=== PATIENT | male | born 1970 | race Caucasian/White ===

== ENCOUNTER 2020-12-30 07:59 | Day surgery (SDC) | payer OTHER ==
[2020-12-30] MEDS ORDERED: Xylocaine 1% Vial 30 ML PF IJ ONE (08:00)
[2020-12-30] MEDS ORDERED: BUPIVACAINE 0.5% VIAL IJ ONE (08:00)
[2020-12-30] MEDS ORDERED: Depo-Medrol 40 MG/ML IM ONE (08:00)
--- NOTE | 2020-12-30 16:31 | XRAY ---
14 seconds of fluoroscopy was used in surgery for right SI joint injection.
--- NOTE | 2020-12-31 09:55 | XRAY ---
Indication: Right SI joint injection. Intraoperative fluoroscopy provided for 14 seconds. 2 digital spot images submitted for interpretation demonstrates posterior needle tip projecting over the inferior right SI joint. Correlate with intraoperative findings/report.
== END 2020-12-30 10:00 | disposition home or self-care (01) ==
LOC: SDC-PAIN 07:59
PROVIDERS: ATTEND Psychiatry & Neurology Pain Medicine
DX: M46.1 Sacroiliitis, not elsewhere classified (principal); E11.9 Type 2 diabetes mellitus without complications; Z79.899 Other long term (current) drug therapy
CPT/HCPCS: 27096; 72020; 77002; 82947; J1030; J2001; G0260

== ENCOUNTER 2021-06-30 11:23 | Day surgery (SDC) | payer OTHER ==
[2021-06-30] MEDS ORDERED: Xylocaine 1% Vial 30 ML PF IJ ONE (11:24)
[2021-06-30] MEDS ORDERED: BUPIVACAINE 0.5% VIAL IJ ONE (11:24)
[2021-06-30] MEDS ORDERED: Depo-Medrol 40 MG/ML IM ONE (11:24)
--- NOTE | 2021-06-30 14:03 | XRAY ---
Indication: Right SI joint injection Intraoperative fluoroscopy provided for 17 seconds. 2 digital spot images submitted for interpretation demonstrates posterior needle tip projecting over the inferior right SI joint. Correlate with intraoperative findings/report.
--- NOTE | 2021-06-30 14:41 | XRAY ---
17 seconds fluoroscopy time in surgery for injection of the right SI joint.
== END 2021-06-30 13:50 | disposition home or self-care (01) ==
LOC: SDC-PAIN 11:23
PROVIDERS: ATTEND Psychiatry & Neurology Pain Medicine
DX: M46.1 Sacroiliitis, not elsewhere classified (principal); I10 Essential (primary) hypertension; E11.9 Type 2 diabetes mellitus without complications; Z79.899 Other long term (current) drug therapy
CPT/HCPCS: 27096; 72020; 77002; 82947; J1030; J2001; G0260

== ENCOUNTER 2021-07-22 14:25 | Day surgery (SDC) | payer OTHER ==
[2021-07-22] MEDS ORDERED: Sodium Chloride 0.9(Preservative Free) 10 ML IJ ONE (14:26)
[2021-07-22] MEDS ORDERED: Depo-Medrol 40 MG/ML IM ONE (14:26)
[2021-07-22] MEDS ORDERED: Decadron 4 MG INJ IV ONE (14:26)
[2021-07-22] MEDS ORDERED: Xylocaine 1% Vial 30 ML PF IJ ONE (14:26)
--- NOTE | 2021-07-22 19:21 | XRAY ---
Indication: Right L4-S1 transforaminal RAIMUNDO. Intraoperative fluoroscopy provided for 36 seconds. 2 digital spot images submitted for interpretation demonstrates posterior needle tips projecting over the expected right L4 and L5 nerve roots. Small amount of contrast injected for needle tip placement. Correlate with intraoperative findings/report.
--- NOTE | 2021-07-22 19:23 | XRAY ---
Indication: Right piriformis muscle injection. Intraoperative fluoroscopy provided for 11 seconds. Single digital spot image submitted for interpretation demonstrates posterior needle tip projecting over the expected right piriformis muscle. Small amount of contrast injected for needle tip placement. Correlate with intraoperative findings/report.
--- NOTE | 2021-07-23 10:07 | XRAY ---
36 seconds fluoroscopy time in surgery for right L4-S1 transforaminal RAIMUNDO.
--- NOTE | 2021-07-23 10:07 | XRAY ---
11 seconds fluoroscopy time in surgery for injection of the right piriformis muscle.
== END 2021-07-22 17:30 | disposition home or self-care (01) ==
LOC: SDC-PAIN 14:25
PROVIDERS: ATTEND Psychiatry & Neurology Pain Medicine
DX: M54.16 Radiculopathy, lumbar region (principal); M79.18 Myalgia, other site; E11.9 Type 2 diabetes mellitus without complications; Z79.899 Other long term (current) drug therapy
CPT/HCPCS: 20552; 64483; 64484; 72020; 72100; 77002; 77003; 82947; J1030; J1100; J2001; Q9966